=== PATIENT | female | born 1965 | race Two or more races ===

== ENCOUNTER 2017-12-09 21:27 | Emergency (ER) | payer MEDICAID, OTHER ==
[~2017-12-09] VITALS: Ht 162.6 cm; Wt 67.3 kg
[~2017-12-09 21:27] MED LIST: ONDA4TAB10 PO; SUMA25TA3 PO
[2017-12-09] MEDS ORDERED: METHOCARBAMOL 750 MG TABLET ONE (22:17)
[2017-12-09] MEDS ORDERED: KETOROLAC 30 MG/1 ML ONE (22:17)
[2017-12-09] MEDS ORDERED: METHOCARBAMOL 750 MG TABLET PO ONE (22:30)
[2017-12-09] MEDS ORDERED: KETOROLAC 30 MG/1 ML IM ONE (22:30)
[2017-12-09 23:15] VITALS: BP 148/87
== END 2017-12-09 23:18 | disposition home or self-care (01) ==
LOC: ED 23:12
DX: M54.41 Lumbago with sciatica, right side (principal); Z90.49 Acquired absence of other specified parts of digestive tract
CPT/HCPCS: 72110; 96372; 99284; J1885